=== PATIENT | female | born 1965 | race Hispanic/Latino ===

== ENCOUNTER → 2019-06-27 | Day surgery (SDC) | payer BC ==
[~2019-06-27] MED LIST: FENTANYL CITRATE/PF 100MCG/2 ML INJ ONE; GLUCAGON FOR INJ 1 MG VIAL ONE; GLYCOPYRROLATE INJ 1MG/ 5 ML SYR ONE; HYOSCYAMINE 0.125 MG TAB ONE; MIDAZOLAM HCL 2 MG/2 ML VIAL ONE; PROPOFOL IV EMULSION 10 MG/ML 50 ML VIAL ONE
--- OUTSIDE RECORDS SUMMARY | 2019-06-27 08:27 | XMS REPORT ---
Author Author [facility] Address Unknown Phone Unavailable Care Team Providers Care Lunchroom Mother Name Role Phone Unavailable Unavailable Problems This patient has no known problems. Allergies, Adverse Reactions, Alerts This patient has no known allergies or adverse reactions. Medications This patient has no known medications. Encounters Start Date/Time End Date/Time Encounter Type Admission Type Attending Clinicians [facility] Facility Care Department Encounter ID 2019-03-12 21:51:00 2019-03-12 18:33:00 Inpatient E [id number]
[2019-06-27 12:00] VITALS: BP 111/73
--- NOTE | 2019-06-27 12:31 | Operative Report ---
DATE OF PROCEDURE: 06/27/2019 SURGEON: Francisco Javier Garrison MD PROCEDURE: Colonoscopy. INDICATIONS FOR COLONOSCOPY: Colorectal cancer screening. MEDICATIONS: The patient was done under MAC, please see anesthesiologist's note. PROCEDURE IN DETAIL: With the patient in left lateral decubitus position, the flexible fiberoptic Olympus colonoscope was inserted into the rectum and advanced all the way to the cecum. Prep overall was poor with moderate to large amount of retained fecal material scattered throughout the colon. There was some diverticular disease noted in the distal descending and the sigmoid colon. The rectum grossly appeared to be within normal limits. The scope was then retroflexed into the distal rectum and small internal hemorrhoids were noted, none of which was actively bleeding. The scope was then straightened out, it was subsequently withdrawn, and the patient tolerated the procedure well. IMPRESSION: 1. Poor prep. 2. Diverticulosis. 3. Internal hemorrhoids, none actively bleeding. PLAN: The patient needs a repeat colonoscopy after a better prep. Francisco Javier Garrison MD [facility] [place] [place] /[id number] cc: Ryley Sullivan MD
== END | disposition home or self-care (01) ==
LOC: OR 08:20
PROVIDERS: ATTEND Internal Medicine Gastroenterology
DX: Z12.11 Encounter for screening for malignant neoplasm of colon (principal); K63.1 Perforation of intestine (nontraumatic); K57.30 Diverticulosis of large intestine without perforation or abscess without bleeding; K64.8 Other hemorrhoids; K59.00 Constipation, unspecified; R03.0 Elevated blood-pressure reading, without diagnosis of hypertension; Z01.810 Encounter for preprocedural cardiovascular examination
CPT/HCPCS: 45378; 93005; J1610; J2250; J2704; J3010; J3490

== ENCOUNTER → 2019-08-08 | Day surgery (SDC) | payer BC ==
[~2019-08-08] MED LIST changes: -GLYCOPYRROLATE INJ 1MG/ 5 ML SYR ONE
[2019-08-08 15:02] VITALS: BP 90/62
--- NOTE | 2019-08-08 22:00 | Operative Report ---
DATE OF PROCEDURE: 08/08/2019 SURGEON: Francisco Javier Garrison MD PROCEDURE: Colonoscopy with polypectomy. INDICATIONS FOR COLONOSCOPY: Colorectal cancer screening. Poor prep on previous colonoscopy. MEDICATIONS: The patient was done under MAC, please see anesthesiologist's note. PROCEDURE IN DETAIL: With the patient in left lateral decubitus position, the flexible fiberoptic Olympus colonoscope was inserted into the rectum with ease and advanced all the way to the cecum. Postoperative changes were noted in the cecum. The scope was then withdrawn slowly. Mucosa overlying the ascending and the transverse grossly appeared to be within normal limits. One polyp was hot biopsied from the descending colon. Diverticular disease was noted in the distal descending and the sigmoid colon. One polyp was hot biopsied from the sigmoid, the rectum appeared to be within normal limits. The scope was then retroflexed into the distal rectum and small internal hemorrhoids were noted, none of which was actively bleeding. The scope was then straightened out and was subsequently withdrawn. The patient tolerated the procedure well. IMPRESSION: 1. Postoperative changes, cecum. 2. Descending colon polyp, hot biopsied. 3. Diverticulosis. 4. Sigmoid colon polyp, hot biopsied. 5. Internal hemorrhoids, none actively bleeding. PLAN: Follow up histology. Initiate high-fiber, low-fat diet. Initiate high-fiber supplement. The patient might benefit from a followup colonoscopy in 3 to 5 years. Francisco Javier Garrison MD [facility] [place] /[id number] cc: Pj Camara MD
== END | disposition home or self-care (01) ==
LOC: OR 10:50
PROVIDERS: ATTEND Internal Medicine Gastroenterology
DX: K63.1 Perforation of intestine (nontraumatic) (principal); K59.00 Constipation, unspecified; R03.0 Elevated blood-pressure reading, without diagnosis of hypertension; K62.89 Other specified diseases of anus and rectum; K63.5 Polyp of colon; K57.30 Diverticulosis of large intestine without perforation or abscess without bleeding; K64.8 Other hemorrhoids; D12.4 Benign neoplasm of descending colon
CPT/HCPCS: 45384; J1610; J2250; J2704; J3010; 45378